=== PATIENT | female | born 1935 | race Caucasian/White ===

== ENCOUNTER 2017-09-24 10:36 | Day surgery (SDC) | payer MEDICARE, BC ==
[~2017-09-24] VITALS: Ht 162.6 cm; Wt 50.3 kg
--- NOTE | ~2017-09-24 | HP ---
PATIENT: BASSEM PINO MEDICAL RECORD: [id number] ACCOUNT: [id number] LOCATION:[facility] : 35 ADMISSION DATE: 09/24/17 HISTORY AND PHYSICAL EXAMINATION HISTORY OF PRESENT ILLNESS: Ms. Pino is an 81-year-old female initially scheduled because of a left nasal mass for biopsy and possible excision. However, last week, she had a syncopal episode, fell and also fractured her nose. She has a significantly displaced nasal fracture. She needs closed reduction of nasal fracture. She had total nasal obstruction bilaterally now that needs to be done relatively acutely so setting her up to do the closed reduction nasal fracture and biopsy and/or excision of the nasal mass at that same time for pathology. PAST MEDICAL HISTORY: Includes coronary artery disease, dyslipidemia, GE reflux. PAST SURGICAL HISTORY: Includes hysterectomy, tonsillectomy, and appendectomy. She is a nonsmoker. CURRENT MEDICATIONS: Include chlorzoxazone, Trusopt eyedrops, Lexapro, Zetia, Nexium, Erin, Lyrica, propranolol, Maxzide, and Zantac. PHYSICAL EXAMINATION: GENERAL: She has got obvious facial ecchymosis diffusely and some repaired lacerations of her nasal dorsum lip. EYES: Sclerae and conjunctivae are normal. Extraocular movements are intact. EARS: Canals and TMs are normal. NOSE: She has got lot of edema of the nose and nasal tip. She has got a left nasal mass obstructing the nasal cavity. ORAL CAVITY AND OROPHARYNX: Tongue protrudes to the midline. Pharynx is normal. She has got sutures in the upper lip. NECK: No masses, no adenopathy. CHEST: Clear. CARDIOVASCULAR: Regular rate and rhythm, no murmur. EXTREMITIES: Normal. IMPRESSION: 1. Displaced nasal fracture. 2. Left nasal mass. PLAN: Closed reduction of nasal fracture, biopsy, possible excision of left nasal mass, and removal of some sutures from laceration repairs. TRANSINT:[id number] Voice Confirmation ID: [id number] DOCUMENT ID: [id number] HISTORY AND PHYSICAL [id number] BASSEM PINO ERIC MD at 1712 CC: [id number] DICTATION DATE: 09/21/17 1101 SHELL FISHERMAN: 09/21/17 1110 [facility] [address] [facility] [place] [address]
--- NOTE | ~2017-09-24 | OP ---
PATIENT NAME: BASSEM PINO MEDICAL RECORD: [id number] :35 [facility] DATE: SURGEON: YUDITH SANTIAGO MD DATE OF OPERATION: 09/24/2017 PREOPERATIVE DIAGNOSES: Displaced nasal fracture, large left nasal mass. POSTOPERATIVE DIAGNOSES: Displaced nasal fracture, displaced septal fracture, left nasal mass and left ethmoid sinusitis. PROCEDURE: Closed reduction nasal fracture with reduction of septal fracture and excision of left nasal mass and left ethmoidectomy. SURGEON: Yudith Santiago MD ANESTHESIA: General orotracheal. BLOOD LOSS: Less than 10 cc. SPECIMENS: Left nasal mass and cultures from the left ethmoid cavity. SPLINTS: Hope splints bilaterally. Osmani splint externally. COMPLICATIONS: None. DISPOSITION: Recovery stable. PROCEDURE IN DETAIL: She was brought to the operating room and placed in supine position, sedated and intubated by anesthesia. She was positioned, prepped and draped in usual fashion. She had been decongested with Afrin preoperatively. The floor of the nose, anterior septum and nasal mass were injected with a total of 1.5 cc of 1% lidocaine with 1:100,000 epinephrine and 2 Afrin pledgets were placed in each side of the nose. After that, the pledgets were removed. The right side was examined with the scope. She had a really severe nasal fracture and severe septal deviation covering the entire right nostril, so with a [place] elevator the fracture was reduced, which was extremely displaced, was very comminuted, but moved the nasal dorsum to the midline from the right side. This allowed some exposure of the right nostril. Then, it was obvious that there was a displaced septal fracture as well. There was no hematoma. The septal fracture could be reduced, but it was not very stable at all as fracture loose from the anterior maxillary spine. Scope was used to examine the right nasal cavity. The inferior turbinate was outfractured with a [place] elevator. The nasopharynx was suctioned. There were no masses, polyps, or drainage. The inferior and middle turbinate were normal. Septum was normal. No hematoma. The nasopharynx was normal. No masses. Then, the left side of the nose was examined and there was a mass obscuring pretty much the entire nasal cavity, fairly smooth. It was really impossible to tell where it originated from because it was filling the entire nasal cavity and obviously expansile. This was medialized slightly with a freer and there was obvious thick green pasty material coming from the upper, middle meatus and towards the ethmoid bulla. 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 All the contents of this were evacuated in a Alessia trap and for culture, fungal stains, aerobic, anaerobic and then the entire mass was trimmed off and OPERATIVE REPORT [id number] BASSEM PINO sent for specimen. The ethmoid cavity was partially opened. The ethmoid bulla also had the same material. A Gruenwald and the biting forceps were used to trim away and opened up all this and suction out all this thick material from the ethmoid cavities from the anterior to posterior aspect. A curved olive tip suction was inserted into the maxillary sinus. Because there was no obvious opening there, that popped into the sinus nicely. The sinus itself was clear, but it created a nice ostia there just with the suction. The fragments of the terrell bullosa were trimmed off. The nasopharynx was suctioned. There was really no significant bleeding. Everything was rinsed and cleaned out. The frontal sinus duct appeared to be open and clear that really was not manipulated. With all that done, even though there was no bleeding, she has had so much bleeding from her leg injury recently that she had required a lot of transfusion, so I went ahead and placed some FloSeal in the ethmoid cavity on the left side, reduced her septal fracture. At this point, the field was completely clean and dry, placed Hope splints bilaterally and sutured through the anterior membranous septum with a 2-0 Prolene on a Doug needle and then cleaned the nose with alcohol, Mastisol and put Steri-Strips and a Osmani splint was cut to size and placed externally to hold her nasal fracture reduced. Her pharynx was suctioned. She was awakened, extubated, and transported to recovery in good condition. No complications. TRANSINT:[id number] Voice Confirmation ID: [id number] DOCUMENT ID: [id number] YUDITH SANTIAGO MD at 1254 CC: [id number] DICTATION DATE: 09/24/17 1609 SHOULDER PAD MOLDER: 09/24/[address] [facility] 09/24/17 [id number] [place] [address]
[2017-09-24 11:00] LABS: BASOPHILS 1.3 % (0-2); EOSINOPHILS 2.7 % (0-7); HEMATOCRIT 29.3 % (36.0-48.0); HEMOGLOBIN 9.5 g/dL (12-16); IMMATURE GRANULOCYTES 1.9 % (0-5); MCH 26.5 pg (26.0-34.0); MCHC 32.4 g/dL (31.0-37.0); MCV 81.8 fL (80.0-100.0); MEAN PLATELET VOLUME 9.4 fL (7.4-10.4); MONOCYTES 12.3 % (2-11); NEUTROPHILS 50.8 % (40-80); PLATELET COUNT 274 10x3/uL (130-400); RBC 3.58 10x6/uL (4.00-5.40); RDW 15.2 % (11.5-14.5); WBC 8.5 10x3/uL (4.8-10.8)
[2017-09-24 11:20] LABS: CALC OSMOLALITY 273 mosm/kg (275-300); CALCIUM 8.3 mg/dL (8.5-10.1); CARBON DIOXIDE 33.4 mmol/L (21.0-32.0); CHLORIDE - SERUM 102 mmol/L (98-107); CREATININE - SERUM 0.6 mg/dL (0.6-1.3); GLUCOSE 92 mg/dL (74-106); POTASSIUM - SERUM 3.4 mmol/L (3.5-5.1); SODIUM 138 mmol/L (136-145); UREA NITROGEN 8 mg/dL (7-18); eGFR NON AFRICAN AMERICAN > 90 mL/min (90-120)
[2017-09-24 13:38] VITALS: BP 142/70; Ht 162.6 cm; Wt 50.3 kg
[2017-09-24] MEDS ORDERED: TYLENOL #4 W/CO1 TAB PO (13:58)
[2017-09-24] MEDS ORDERED: OS-CAL 500+D TA1 TAB (13:58)
[2017-09-24] MEDS ORDERED: VITAMIN D2000 UNIT PO (13:59)
[2017-09-24] MEDS ORDERED: RESTASIS EYE DR30 EA EACH EYE (14:00)
[2017-09-24] MEDS ORDERED: CLEOCIN HCL150 MG PO (14:00)
[2017-09-24] MEDS ORDERED: TRUSOPT 2 % OPT10 ML EACH EYE (14:01)
[2017-09-24] MEDS ORDERED: ZETIA10 MG (14:02)
[2017-09-24] MEDS ORDERED: NEXIUM40 MG (14:02)
[2017-09-24] MEDS ORDERED: FERROUS SULFAT325 MG PO (14:03)
[2017-09-24] MEDS ORDERED: FEXOFENADINE H180 MG PO (14:04)
[2017-09-24] MEDS ORDERED: XODOL 5-300 TA1 EACH PO (14:05)
[2017-09-24] MEDS ORDERED: INDERAL LA120 MG PO (14:06)
[2017-09-24] MEDS ORDERED: LYRICA100 MG PO (14:06)
[2017-09-24] MEDS ORDERED: ZOFRAN4 MG PO (14:07)
[2017-09-24] MEDS ORDERED: TRAZODONE HCL50 MG PO (14:08)
[2017-09-24] MEDS ORDERED: TRAVATAN Z2.5 ML RIGHT EYE (14:09)
== END 2017-09-24 17:50 | disposition home or self-care (01) ==
LOC: D.OPS 10:36 → D.PAN 12:00 → D.OPS 17:50
PROVIDERS: Anesthesiology
DX: S02.2XXA Fracture of nasal bones, initial encounter for closed fracture (principal); W18.30XA Fall on same level, unspecified, initial encounter; J34.89 Other specified disorders of nose and nasal sinuses; J32.2 Chronic ethmoidal sinusitis; I25.10 Atherosclerotic heart disease of native coronary artery without angina pectoris; E78.5 Hyperlipidemia, unspecified; K21.9 Gastro-esophageal reflux disease without esophagitis